=== PATIENT | female | born 1995 | race Caucasian/White ===

== ENCOUNTER 2018-09-19 10:42 | Emergency (ER) | payer OTHER ==
[2018-09-19 12:01] LABS: PLATELET COUNT 301 10^3/uL (150-400)
--- NOTE | 2018-09-19 12:44 | EDPHY ---
General Time Seen by Provider: 09/19/18 11:21 Narrative: CLINICAL IMPRESSION: Generalized lower abdominal pain and pelvic pain ASSESSMENT/PLAN: 23-year-old female with a history of chronic intermittent abdominal pain presents to the emergency department with atraumatic lower abdominal pelvic pain since last night, improving throughout today. No associated nausea, vomiting, diarrhea, constipation or bloody stools. No reported fever, chills, UTI symptoms or flank pain. Abdomen is soft without focal peritoneal findings. Vital signs are stable. Urine study show no evidence of pyuria, bacteriuria, or hematuria. test is negative. Labs are reassuring with no leukocytosis, renal insufficiency or electrolyte imbalance. Pelvic ultrasound read by Radiology with no evidence of ovarian torsion, salpingitis, ovarian cyst or for pelvic free fluid. Patient was reassured. She has declined analgesics and reports pain is 2/10. I encouraged outpatient primary care and GI follow-up. Warning signs return to ED sooner outlined and discharge. DIFFERENTIAL DX: Abdominal pain includes but not limited to urinary tract infection, pyelonephritis, infection, ectopic , salpingitis, TOA, ovarian torsion, ovarian cyst, endometriosis, uterine fibroids, acute appendicitis, acute diverticulitis, small-bowel obstruction, constipation ED PROCEDURES: See lab and/or imaging results below ED COURSE: 12:40 p.m.: Labs reviewed by myself. No leukocytosis, renal insufficiency or electrolyte imbalance. Urine is unremarkable, no sign of UTI, no hematuria. Ultrasound pending. 1:20 p.m.: Dr. Tripp calls with ultrasound results which are essentially unremarkable, no evidence of torsion, cyst, salpingitis, IUD is in appropriate position. CHIEF COMPLAINT: Lower abdominal pain HPI: 23-year-old otherwise healthy female presents to the emergency department with relatively sudden onset lower pelvic discomfort beginning yesterday at work. Patient reports pain was 9/10 and bad enough that she had to go home. No associated nausea, vomiting, diarrhea, constipation, flank pain or UTI symptoms. She did not take anything for pain and reports over the last 24 hr her pain has progressively been improving. She currently rates pain 3/10 and declined analgesics. No associated dysuria, urgency or gross hematuria. She reports a history of "chronic bowel issues" and intermittent episodes of chronic vomiting, has had normal EGD and colonoscopies in the past. She has had a normal appetite and did eat this morning. No fever or chills. No history of abdominal wall surgery. She has IUD in place and has been able to detect the IUD strings. She does not get menstrual cycles because of her IUD. She denies . She has no abnormal discharge or concern for infection. No concern for STDs. PAST MEDICAL HISTORY: Chronic abdominal pain See nurse/triage notes for additional history if applicable Pertinent Past Surgical History: None reported Family History: Noncontributory Social History: Nonsmoker, otherwise healthy REVIEW OF SYSTEMS: All other systems negative Constitutional: No fever, no chills, denies appetite change. ENT: No sore throat, congestion, ear pain. Cardiovascular: No chest pain, no palpitations. Respiratory: No cough, no shortness of breath. Gastrointestinal: Positive for bilateral lower abdominal pain, no vomiting, diarrhea. Genitourinary: No hematuria, dysuria, flank pain, pelvic pain Musculoskeletal: No back pain, joint swelling, joint pain, myalgias. Skin: No rashes, color change. PHYSICAL EXAM: General Appearance: Alert, oriented, appropriate, cooperative, NAD, well hydrated, non-toxic appearing, VSS, no hypoxia, sitting comfortably on the bed. HEENT: Oropharynx clear is no erythema or exudates, no tonsillar hypertrophy or asymmetry. Dentition without abnormality. Respiratory: There are no retractions, lungs are clear to auscultation. Cardiac: Regular rate and rhythm, no murmurs or gallops. Gastrointestinal: Abdomen is soft, mild generalized lower pelvic discomfort to palpation, bowel sounds normal, no masses/hernia, no rigidity, guarding or focal peritoneal findings. Neurological: [ Alert and oriented x 3 Skin: Warm, dry, no rashes, no nodules on palpation. MEDICAL DECISION MAKING: Patient was seen independently. Secondary supervising physician at time of evaluation was Dr. Mari . Diagnosis: Generalized lower abdominal and pelvic pain . New, requires workup Summary: See Assessment and Plan for summary of ED visit Clinical lab tests: ordered / reviewed. Independent visualization of images, tracing, or specimens: Yes. Patient Progress: Improved, stable for discharge. - Diagnostics Imaging Results: Imaging Impressions Pelvic/Renal Ultrasound 09/19/18 12:09 Impression: Normal ultrasound pelvis. IUD in place. Results called to Reji Syed PA-C at 1:20 PM - History Smoking Status: Never smoked - Objective Vital Signs: Initial Vital Signs Temperature (C) 36.5 C 09/19/18 10:49 Heart Rate 88 09/19/18 10:49 Respiratory Rate 16 09/19/18 10:49 Blood Pressure 102/57 L 09/19/18 10:49 O2 Sat (%) 98 09/19/18 10:49 O2 Delivery Mode Room Air Allergies/Adverse Reactions: No Known Allergies Allergy (Unverified 09/19/18 10:49) Home Medications: Medication Instructions Recorded NK [No Known Home Meds] 09/19/18 Laboratory Results: Laboratory Results 09/19/18 11:00 09/19/18 11:00 09/19/18 09/19/18 09/19/18 11:00 11:00 11:00 WBC RBC Hgb Hct MCV MCH MCHC RDW Plt Count MPV Neut % (Auto) Lymph % (Auto) [place] % (Auto) Eos % (Auto) Baso % (Auto) Nucleat RBC Rel Count Absolute Neuts (auto) Absolute Lymphs (auto) Absolute Monos (auto) Absolute Eos (auto) Absolute Basos (auto) Absolute Nucleated RBC Immature Gran % Immature Gran # Sodium 139 mEq/L mEq/L (135-145) Potassium 4.4 mEq/L mEq/L (3.5-5.2) Chloride 105 mEq/L mEq/L (97-110) Carbon Dioxide 26 mEq/l mEq/l (22-31) Anion Gap 8 mEq/L mEq/L (6-14) BUN 15 mg/dL mg/dL (7-23) Creatinine 0.7 mg/dL mg/dL (0.6-1.0) Estimated GFR > 60 Glucose 79 mg/dL mg/dL (70-100) Calcium 9.6 mg/dL mg/dL (8.5-10.4) Urine Color YELLOW Urine Appearance MODERATELY TURBID Urine pH 8.0 H (5.0-7.5) Ur Specific [place] 1.012 (1.002-1.030) Urine Protein NEGATIVE (NEGATIVE) Urine Ketones NEGATIVE (NEGATIVE) Urine Blood NEGATIVE (NEGATIVE) Urine Nitrate NEGATIVE (NEGATIVE) Urine Bilirubin NEGATIVE (NEGATIVE) Urine Urobilinogen NEGATIVE EU EU (0.2-1.0) Ur Leukocyte Esterase NEGATIVE (NEGATIVE) Urine Glucose NEGATIVE (NEGATIVE) Urine Test NEGATIVE 09/19/18 11:00 WBC 6.64 10^3/uL 10^3/uL (3.80-9.50) RBC 5.16 10^6/uL 10^6/uL (4.18-5.33) Hgb 15.3 g/dL g/dL (12.6-16.3) Hct 47.1 % H % (38.0-47.0) MCV 91.3 fL fL (81.5-99.8) MCH 29.7 pg pg (27.9-34.1) MCHC 32.5 g/dL g/dL (32.4-36.7) RDW 12.7 % % (11.5-15.2) Plt Count 301 10^3/uL 10^3/uL (150-400) MPV 9.5 fL fL (8.7-11.7) Neut % (Auto) 71.0 % % (39.3-74.2) Lymph % (Auto) 23.2 % % (15.0-45.0) [place] % (Auto) 4.2 % L % (4.5-13.0) Eos % (Auto) 0.8 % % (0.6-7.6) Baso % (Auto) 0.6 % % (0.3-1.7) Nucleat RBC Rel Count 0.0 % % (0.0-0.2) Absolute Neuts (auto) 4.72 10^3/uL 10^3/uL (1.70-6.50) Absolute Lymphs (auto) 1.54 10^3/uL 10^3/uL (1.00-3.00) Absolute Monos (auto) 0.28 10^3/uL L 10^3/uL (0.30-0.80) Absolute Eos (auto) 0.05 10^3/uL 10^3/uL (0.03-0.40) Absolute Basos (auto) 0.04 10^3/uL 10^3/uL (0.02-0.10) Absolute Nucleated RBC 0.00 10^3/uL 10^3/uL (0-0.01) Immature Gran % 0.2 % % (0.0-1.1) Immature Gran # 0.01 10^3/uL 10^3/uL (0.00-0.10) Sodium Potassium Chloride Carbon Dioxide Anion Gap BUN Creatinine Estimated GFR Glucose Calcium Urine Color Urine Appearance Urine pH Ur Specific [place] Urine Protein Urine Ketones Urine Blood Urine Nitrate Urine Bilirubin Urine Urobilinogen Ur Leukocyte Esterase Urine Glucose Urine Test Departure - Departure Disposition: Home, Routine, Self-Care Clinical Impression: Pelvic pain in female Condition: Good Instructions: Pelvic Pain (ED) Additional Instructions: DISCHARGE INSTRUCTIONS FROM YOUR DOCTOR Thank you for visiting our emergency department today. You were treated by a physician assistant professor of theater today and your case was reviewed with our ED Attending physician. Please keep in mind that discharge from the emergency department does not mean that there is nothing wrong - it simply means that we have not identified an emergency condition that requires further evaluation or treatment in the hospital. You should always plan to follow up with primary care for re- evaluation of your condition in the next 2-3 days. If you have been referred to a specialist, please call as soon as possible (today or tomorrow) to schedule your follow up appointment at the appropriate time. DIAGNOSTIC EVALUATION IN THE EMERGENCY DEPARTMENT TODAY INCLUDED URINE STUDIES , LABORATORY EVALUATION, AND PELVIC ULTRASOUND. YOU HAVE NO ABNORMALITIES ON LAB EVALUATION, NO EVIDENCE OF URINARY TRACT INFECTION OR BLOOD IN HER URINE, AND THE RADIOLOGIST READ THE ULTRASOUND SHOWING NO ABNORMALITIES WITH AN APPROPRIATELY PLACED IUD. PLEASE MONITOR SYMPTOMS CLOSELY AT HOME, FOLLOW-UP WITH A PRIMARY CARE DOCTOR. A REFERRAL TO GASTROENTEROLOGY WAS ALSO PROVIDED. RETURN TO THE EMERGENCY DEPARTMENT FOR WORSENING OR SEVERE ABDOMINAL PAIN, DEVELOPMENT OF FEVER CHILLS, NAUSEA OR VOMITING, DIARRHEA, BLOODY STOOLS OR ANY OTHER CONCERN. People present with illnesses and injuries in different ways, and it is always possible that we have missed something. You may always return for re-evaluation if symptoms worsen or if they are not improving or if you develop new/different symptoms. Again, thank you for choosing our emergency department. We hope that you feel better. Referrals: NONE *PRIMARY CARE P,. [Primary Care Provider] - As per Instructions Marcelina Robert MD [Medical Doctor] - As per Instructions Efrain Reed MD [Medical Doctor] - As per Instructions
[2018-09-19 13:11] VITALS: BP 107/60
== END 2018-09-19 13:41 | disposition home or self-care (01) ==
DX: R10.2 Pelvic and perineal pain (principal); R10.84 Generalized abdominal pain